=== PATIENT | male | born 1935 | race Caucasian/White ===

== ENCOUNTER → 2022-05-08 12:28 | Outpatient (BNVA) | payer MEDICARE, SELFPAY | PROVIDERS: PCP Internal Medicine; Visit Provider Psychiatry & Neurology Neurology | DX: R41.89 Other symptoms and signs involving cognitive functions and awareness (principal) | CPT/HCPCS: 99202 ==

== ENCOUNTER 2023-05-01 12:57 | Outpatient (AMB) | payer MEDICARE, SELFPAY ==
--- NOTE | 2023-05-01 12:58 | MHC.OFFVIS ---
Intake Intake Visit Reasons: f/u for ongoing Memory Problems- CONF Intake Note: Pt presents for one year follow up for cognitive changes via telehealth. Urologist Required: No Allergies No Known Allergies Allergy (Verified 05/01/23 12:59) HPI HPI Comments History of Present Illness Details 87y/o male calls for follow up of memory issues.He is accompanied by his Sherry who helps with history. His says they both have some memory issues.He is having difficulty getting in and out of shower. He still works as a sales and marketing coordinator. He drives good. He is mostly independent in his ADLs. He has severe right knee pain which affects his physical activity. He denies any sleep issues. [facility] Medical History (Updated 05/08/22 @ 13:32 by Ashley Jaffe MD) BPH (benign prostatic hyperplasia) HTN (hypertension) Surgical History Hip joint replacement by other means Family History Mother Cancer Heart attack Father No problems noted. Brother Dementia Daughter Colon cancer Social History Alcohol intake: current Patient Tobacco Use Status: Former Tobacco user Physical Exam Orientation What is the (year) (season) (date) (day) (month)?: year, season, date, day and month Where are we (state) (county) (town or city) (hospital) (floor)?: state, county, town or city, hospital/clinic and floor Registration Name of 3 unrelated objects clearly and slowly, then ask patient to repeat all 3 of them. (1st repeat determines score. Make sure they can repeat all three): object 1, object 2 and object 3 Attention & Calculation (CHOOSE ONE) Spell WORLD backwards (DLROW): 5 letters Recall Ask patient to repeat the 3 items from question #3.: object 1, object 2 and object 3 Language Show patient a wristwatch & ask what it is. Repeat for pencil.: watch and pencil Ask the patient to repeat the phrase 'No ifs, ands, or buts' after you.: correct Ask the patient to 'take a piece of paper with their right hand' 'fold paper in half' 'place paper on floor': take paper in right hand and fold paper in half Print the sentence 'CLOSE YOUR EYES' on a piece. If patient actually closes eyes then score.: followed written direction Give patient a blank piece of paper & ask to write a sentence. Score if it contains a noun & verb.: sentence contains subject and verb Score Score: 28 Assessment & Plan Assessment & Plan (1) Cognitive change: Comment: ? related to mood. Code(s): R41.89 - Other symptoms and signs involving cognitive functions and awareness Plan He did well on his mental status exam today . Recheck hearing aids- hearing loss can contribute to cognitive changes suggested to get help from Senior services F/u as needed Coding Level of Care Code Tele Est Pt Level 4 (03379) Diagnoses Cognitive change R41.89 Time Spent (min) 18
== END 2023-05-01 14:57 | disposition home or self-care (01) ==
LOC: HO.HSMS 12:57
PROVIDERS: PCP Internal Medicine; Visit Provider Psychiatry & Neurology Neurology
DX: R41.89 Other symptoms and signs involving cognitive functions and awareness (principal)
CPT/HCPCS: 99442